=== PATIENT | female | born 1945 | race Caucasian/White ===

== ENCOUNTER 2021-12-22 20:28 | Inpatient (IN) | payer MEDICARE, OTHER ==
[~2021-12-22] VITALS: Ht 175.3 cm; Wt 67.6 kg
[2021-12-22] MEDS ORDERED: ONDANSETRON 4 MG/2 ML VIAL IV ONE (20:45)
[2021-12-22] MEDS ORDERED: FAMOTIDINE. 20 MG/2 ML VIAL IV ONE ×2 (20:45→20:59)
[2021-12-22] MEDS ORDERED: IV NORMAL SALINE 1000 ML BAG IV ONE (20:45)
[2021-12-22] MEDS ORDERED: HYDROMORPHONE 1 MG/1 ML DISP.SYRIN IV ONE (20:45)
--- NOTE | 2021-12-22 20:48 | NUR ---
Patient A/Ox3. NAD noted. Daughter at bedside.
[2021-12-22] MEDS ORDERED: ONDANSETRON 4 MG/2 ML VIAL ONE (20:58)
[2021-12-22] MEDS ORDERED: HYDROMORPHONE 1 MG/1 ML DISP.SYRIN ONE (20:59)
[2021-12-22 21:13] LABS: HEMATOCRIT 40.1 % (31.2-41.9); MEAN CORPUSCULAR HEMOGLOBIN 31.2 uug (24.7-32.8); MEAN CORPUSCULAR VOLUME 91.3 fL (75.5-95.3); PLATELET COUNT (AUTO) 322 K/uL (179-408)
--- NOTE | 2021-12-22 21:15 | NUR ---
Dr. Armenta at bedside.
--- NOTE | 2021-12-22 21:15 | NUR ---
Dr. Armenta at bedside. MSE in progress.
[2021-12-22 21:23] LABS: ALANINE AMINOTRANSFERASE 109 U/L (14-59); ALKALINE PHOSPHATASE 97 U/L (50-136); ASPARTATE AMINOTRANSFERASE 83 U/L (15-37); BILIRUBIN,DIRECT 0.1 mg/dL (0.0-0.2); BILIRUBIN,TOTAL 0.7 mg/dL (0.2-1.0); CARBON DIOXIDE 24 mmol/L (21-32); CHLORIDE 103 mmol/L (98-107); CREATININE 0.8 mg/dL (0.6-1.3); GLUCOSE 109 mg/dL (74-106); POTASSIUM 3.6 mmol/L (3.5-5.1); TOTAL PROTEIN, SERUM 6.9 g/dL (6.4-8.2); UREA NITROGEN, BLOOD 16 mg/dL (7-18)
[2021-12-22 21:41] LABS: LIPASE 6599 U/L (73-393)
--- NOTE | 2021-12-22 22:03 | NUR ---
Patient going downstairs for CT scan.
[2021-12-22] MEDS ORDERED: IV NORMAL SALINE 250 ML IV ONE (22:05)
[2021-12-22] MEDS ORDERED: IOHEXOL 300MG/ML 100 ML INFUS..BTL ONE (22:05)
[2021-12-22] MEDS ORDERED: SWABABLE VALVE TRANSFER SET EA MC ONE (22:05)
--- NOTE | 2021-12-22 22:20 | NUR ---
Patient back from CT.
--- NOTE | 2021-12-22 22:40 | NUR ---
Contacted 3rd fl, patient will be transferred to Med Surg RM 301.
[2021-12-22] MEDS ORDERED: MAGNESIUM HYDROXIDE 30 ML LIQUID UDC PO PRN (23:30)
[2021-12-22] MEDS ORDERED: MORPHINE SULFATE 2 MG/1 ML DISP.SYRIN IV PRN (23:30)
--- NOTE | 2021-12-23 | NUR ---
Daughter called and stated that only she can make decisions for patient. She can be reach at .
--- NOTE | 2021-12-23 01:00 | NUR ---
Called for report, but there will be a room change.
--- NOTE | 2021-12-23 01:10 | NUR ---
Report given to Earlene MALONE. Patient will go to Med Surg room 301.
--- NOTE | 2021-12-23 01:25 | NUR ---
Pt. admitted to Med Surg 301 A , under care of Dr. Singh Belongs List completed Earlene RN aware of patients arrival.
--- NOTE | 2021-12-23 01:25 | NUR ---
PATIENT ADMITTED TO ROOM 301A.
[2021-12-23 01:30] VITALS: BP 145/70
--- NOTE | 2021-12-23 01:30 | NUR ---
RECEIVED PATIENT CHANG FROM ER. A/O X4. ANGOLAN SPEAKING ONLY BUT ABLE TO MAKE SIMPLE NEEDS KNOWN. VSS. H/L INTACT AND PATENT NOTED TO RIGHT AC #20 GAUGE. CALL LIGHT IN REACH, ALL NEEDS ATTENDED.
[2021-12-23] MEDS: PANTOPRAZOLE SODIUM 40 MG VIAL IV SCH ×2 (01:39→08:52)
[2021-12-23] MEDS: IV NS 1000 ML 1,000 ML IV PRN ×2 (01:49→15:16)
[2021-12-23 04:31] VITALS: BP 111/64
[2021-12-23] MEDS: ACETAMINOPHEN 325 MG TABLET PO PRN (06:09)
[2021-12-23 08:25] LABS: HEMATOCRIT 37.8 % (31.2-41.9); MEAN CORPUSCULAR HEMOGLOBIN 31.8 uug (24.7-32.8); MEAN CORPUSCULAR VOLUME 91.8 fL (75.5-95.3); PLATELET COUNT (AUTO) 277 K/uL (179-408)
[2021-12-23 08:39] LABS: BILIRUBIN,DIRECT 0.1 mg/dL (0.0-0.2); BILIRUBIN,TOTAL 0.8 mg/dL (0.2-1.0); CREATININE 0.8 mg/dL (0.6-1.3); MAGNESIUM 1.7 mg/dL (1.8-2.4); PHOSPHOROUS 3.4 mg/dL (2.5-4.9); POTASSIUM 3.6 mmol/L (3.5-5.1); TOTAL PROTEIN, SERUM 6.5 g/dL (6.4-8.2)
[2021-12-23] MEDS: ENOXAPARIN SODIUM 40 MG/0.4 ML DISP.SYRIN SQ SCH (08:52)
[2021-12-23] MEDS ORDERED: MAGNESIUM OXIDE 400 MG TABLET PO ONE (11:00)
[2021-12-23 11:11] VITALS: BP 102/62
[2021-12-23] MEDS: ONDANSETRON 4 MG/2 ML VIAL IV PRN ×2 (11:54→20:38)
[2021-12-23] MEDS ORDERED: ALEN70TA80 PO (12:09)
[2021-12-23] MEDS ORDERED: ESCI10TA PO (12:09)
[2021-12-23] MEDS ORDERED: MIRA25TA PO (12:09)
[2021-12-23] MEDS ORDERED: TRAZ-182 PO (12:09)
[2021-12-23] MEDS ORDERED: GABA-532 PO (12:09)
[2021-12-23] MEDS ORDERED: OMEP20CA16 PO (12:09)
[2021-12-23] MEDS ORDERED: DONE10TA44 PO (12:09)
[2021-12-23] MEDS ORDERED: NAMENDA PO (12:09)
[2021-12-23] MEDS ORDERED: PANTOPRAZOLE SODIUM 40 MG VIAL IV SCH (13:00)
[2021-12-23] MEDS ORDERED: CALCIUM CARBONATE 500 MG TAB.CHEW PO ONE (13:00)
[2021-12-23 15:10] VITALS: BP 99/66
[2021-12-23 20:00] VITALS: BP 125/64
[2021-12-24 04:00] VITALS: BP 111/57
[2021-12-24] MEDS: IV NS 1000 ML 1,000 ML IV PRN ×2 (06:50→21:23)
[2021-12-24 07:10] LABS: HEMATOCRIT 34.7 % (31.2-41.9); MEAN CORPUSCULAR HEMOGLOBIN 31.8 uug (24.7-32.8); MEAN CORPUSCULAR VOLUME 91.7 fL (75.5-95.3); PLATELET COUNT (AUTO) 247 K/uL (179-408)
[2021-12-24 07:17] LABS: BILIRUBIN,DIRECT 0.1 mg/dL (0.0-0.2); BILIRUBIN,TOTAL 0.8 mg/dL (0.2-1.0); CREATININE 0.8 mg/dL (0.6-1.3); MAGNESIUM 1.7 mg/dL (1.8-2.4); PHOSPHOROUS 2.7 mg/dL (2.5-4.9); POTASSIUM 3.6 mmol/L (3.5-5.1); TOTAL PROTEIN, SERUM 5.8 g/dL (6.4-8.2)
[2021-12-24] MEDS: PANTOPRAZOLE SODIUM 40 MG VIAL IV SCH (09:06)
[2021-12-24] MEDS: ENOXAPARIN SODIUM 40 MG/0.4 ML DISP.SYRIN SQ SCH (09:07)
[2021-12-24] MEDS ORDERED: MAGNESIUM SULFATE/D5W 100 ML IV SCH (10:30)
[2021-12-24] MEDS ORDERED: MAGNESIUM OXIDE 400 MG TABLET PO ONE (10:30)
--- NOTE | 2021-12-24 10:31 | NUR ---
patient asked if magnesium IV can be switched to PO form since her arm with IV was sore and she couldn't hold it straight for too long. Was given Magnesium PO with little bit of water.
[2021-12-24 11:14] VITALS: BP 113/59
[2021-12-24] MEDS: ACETAMINOPHEN 325 MG TABLET PO PRN ×2 (12:04→23:06)
[2021-12-24 15:23] VITALS: BP 104/60
[2021-12-24 20:00] VITALS: BP 113/58
--- NOTE | 2021-12-24 23:30 | NUR ---
Pt complaining of headache. Administered tylenol as ordered.
[2021-12-25 04:00] VITALS: BP 121/54
[2021-12-25 06:49] LABS: MEAN CORPUSCULAR HEMOGLOBIN 31.6 uug (24.7-32.8); MEAN CORPUSCULAR VOLUME 91.7 fL (75.5-95.3); PLATELET COUNT (AUTO) 253 K/uL (179-408)
[2021-12-25 07:05] LABS: CARBON DIOXIDE 23 mmol/L (21-32); CHLORIDE 107 mmol/L (98-107); CREATININE 0.7 mg/dL (0.6-1.3); GLUCOSE 59 mg/dL (74-106); MAGNESIUM 1.8 mg/dL (1.8-2.4); PHOSPHOROUS 2.8 mg/dL (2.5-4.9); POTASSIUM 3.7 mmol/L (3.5-5.1); UREA NITROGEN, BLOOD 10 mg/dL (7-18)
[2021-12-25] MEDS: PANTOPRAZOLE SODIUM 40 MG VIAL IV SCH (09:34)
[2021-12-25] MEDS: ENOXAPARIN SODIUM 40 MG/0.4 ML DISP.SYRIN SQ SCH (09:34)
[2021-12-25] MEDS ORDERED: PANT40TA2 PO (11:13)
[2021-12-25 11:55] VITALS: BP 122/67
[2021-12-25] MEDS ORDERED: PROTEIN SUPPLEMENT (PROSTAT) 30 ML LIQUID PO SCH (12:00)
[2021-12-25] MEDS ORDERED: GLUCERNA SHAKE 237 ML CAN PO SCH (13:00)
[2021-12-25 15:45] VITALS: BP 115/63
== END 2021-12-25 17:00 | disposition home or self-care (01) | DRG 438 ==
LOC: ER 20:28 → MEDSURG3 23:54
PROVIDERS: ADMIT Nurse Practitioner Acute Care; ATTEND Registered Nurse
DX: K85.90 Acute pancreatitis without necrosis or infection, unspecified (principal); K65.9 Peritonitis, unspecified; K80.20 Calculus of gallbladder without cholecystitis without obstruction; F03.90 Unspecified dementia, unspecified severity, without behavioral disturbance, psychotic disturbance, mood disturbance, and anxiety; K44.9 Diaphragmatic hernia without obstruction or gangrene; R74.01 Elevation of levels of liver transaminase levels; Z20.822 Contact with and (suspected) exposure to COVID-19; K29.80 Duodenitis without bleeding
CPT/HCPCS: 36415; 71045; 83690; 83735; 84100; 84484; 85025; 85730; 93005; A4663; C9113; G0378; J1170; J1650; J2270; J2405; J3490; J7040; Q9967